=== PATIENT | male | born 1985 | race Caucasian/White ===

== ENCOUNTER 2018-03-26 10:34 | Emergency (ER) ==
[2018-03-26 10:43] VITALS: BP 152/84; TEMP 97.1; BMI 23.7
[2018-03-26] MEDS ORDERED: SODIUM CHLORIDE 1,000 ML IV STA ×3 (10:48→12:03)
[2018-03-26] MEDS ORDERED: MORPHINE 4 MG/ML VIAL IVP STA (10:48)
[2018-03-26] MEDS ORDERED: ZOFRAN 4 MG/2 ML IVP STA (10:48)
[2018-03-26] MEDS ORDERED: MORPHINE 10 MG/ML SYRINGE IVP STA (10:48)
[2018-03-26] MEDS ORDERED: MORPHINE 4 MG/ML SYRINGE IVP STA (10:58)
--- NOTE | 2018-03-26 11:46 | CT ---
EXAM: CT Abdomen without contrast. CT Pelvis without contrast. HISTORY: Right lower quadrant pain, nausea, vomiting, diarrhea. COMPARISON: None available. TECHNIQUE: Multiple axial images of the abdomen and pelvis were obtained without intravenous contras t. Images were reformatted in the sagittal and coronal plane. FINDINGS: Please note that evaluation of the abdominal and pelvic structures is limited due to lack of intravenous contrast. The lung bases are clear. No acute osseous abnormality identified. The liver is mildly enlarged. The liver, gallbladder, pancreas, spleen, and adrenal glands demonstra te normal contour. No calcified renal stones, hydronephrosis or perinephric inflammation identified. The bowel is normal in course and caliber without evidence for obstruction or inflammatory process. The appendix is normal. Urinary bladder is collapsed. No free fluid or free air identified IMPRESSION: No acute abnormality within the abdomen or pelvis.
--- NOTE | 2018-03-26 13:01 | ED.PDOC ---
General ED Provider: Dr. TOVA HEATH Chief Complaint: Nausea/Vomiting Stated Complaint: ABDOMINAL PAIN Time Seen by Physician: 10:45 (VOMITING DIARHEAX 1 DAY ) Mode of Arrival: Walk-In Information Source: Patient Exam Limitations: No limitations Primary Care Provider: BOB KING Referred to ED by: Other (NO GI BLEED REPORTED / NEGATIVE TRAUMA) Nursing and Triage Documentation Reviewed and Agree: Yes (SEE WITH PT'S NURSE AT ALL TIMES ) Reviewed sepsis parameters & appropriate labs ordered?: Yes System Inflammatory Response Syndrome: Not Applicable Sepsis Protocol: For patient's 13 years and over: Temp is 96.8 and below OR 101 and greater Pulse >90 BPM Resp >20/minute Acutely Altered Mental Status Are patient's symptoms suggestive of a new infection, such as: -Pneumonia -Skin, Soft Tissue -Endocarditis -UTI -Bone, Joint Infection -Implantable Device -Acute Abdominal Infection -Wound Infection -Meningitis -Blood Stream Catheter Infection -Unknown System Inflammatory Response Syndrome: Not Applicable GI Complaint Exam - Abdominal Pain Complaint/Exam Onset: Gradual Duration: 1 DAY Symptoms Are: Still present Timing: Intermittent Initial Severity: Moderate Current Severity: Moderate Location of Pain: Diffuse Radiates To: Denies: Chest, Back, Flank, LLQ, RLQ, Inguinal Character: Reports: Cramping Aggravating: Reports: Food Alleviating: Reports: None Associated Signs and Symptoms: Reports: Nausea, Vomiting. Denies: Diaphoresis, Fever, Cough, Chest pain, Dizziness, Back pain, Constipation, Blood in stool, Dysuria, Urinary frequency, Decreased urine output, Decreased appetite, Discharge, Diarrhea, Decreased activity AAA Risk Factors: Reports: None Cardiac Risk Factors: Reports: None Testicular Torsion Risk Factors: Reports: None Surgical Obstruction Risk Factors: Reports: None Related Surgical History: Reports: None Abdominal Findings: Present: None Differential Diagnoses: Appendicitis, Bowel Obstruction, Constipation, Diverticulitis, Hepatitis, Pancreatitis, UTI Quality Indicators for AMI: EKG in 10min. Quality Indicators for Cardiac Chest Pain: EKG in 10min. Quality Indicator For Non-Traumatic Chest Pain/Syncope: EKG Performed Review of Systems - Review Of Systems Constitutional: Reports: Malaise Eyes: Reports: No symptoms Ears, Nose, Mouth, Throat: Reports: No symptoms Respiratory: Reports: No symptoms Cardiac: Reports: No symptoms GI: Reports: Diarrhea, Nausea, Vomiting : Reports: No symptoms Musculoskeletal: Reports: No symptoms Skin: Reports: No symptoms Neurological: Reports: No symptoms Endocrine: Reports: No symptoms Hematologic/Lymphatic: Reports: No symptoms All Other Systems: Reviewed and Negative Past Medical History - Past Medical History Previously Healthy: Yes Endocrine: Reports: None Cardiovascular: Reports: None Respiratory: Reports: None Hematological: Reports: None Gastrointestinal: Reports: None Genitourinary: Reports: None Neuro/Psych: Reports: None Musculoskeletal: Reports: None Cancer: Reports: None - Surgical History General Surgical History: Reports: None - Family History Family History: Reports: None - Social History Smoking Status: Current every day smoker, Heavy tobacco smoker Hx Substance Use: No Alcohol Screening: None - Immunizations Tetanus Shot up to Date: Yes Physical Exam - Physical Exam Appearance: Well-appearing, No pain distress, Well-nourished Eyes: JERROD, EOMI, Conjunctiva clear ENT: Ears normal, Nose normal, Oropharynx normal Respiratory: Airway patent, Breath sounds clear, Breath sounds equal, Respirations nonlabored Cardiovascular: RRR, Pulses normal, No rub, No murmur GI/: Soft, Nontender, No masses, Bowel sounds normal, No Organomegaly Musculoskeletal: Normal strength, ROM intact, No edema, No calf tenderness Skin: Warm, Dry, Normal color Neurological: Sensation intact, Motor intact, Reflexes intact, Cranial nerves intact, Alert, Oriented Psychiatric: Affect appropriate, Mood appropriate Interpretation - Radiology Interpretation Radiology Interpretation By: Radiologist Radiology Results: No acute changes Re-Evaluation - Re-Evaluation Time of Re-Evaluation: 12:00 Status: Improved Vital Signs Stable: Yes Pain Level: 0 Appearance: NAD Lungs: Clear Skin: Warm and Dry Neuro: Alert and Oriented X3 CV: RRR - Re-Evaluation Time of Re-Evaluation: 13:02 Status: Improved Vital Signs Stable: Yes Pain Level: 0 Appearance: NAD Skin: Warm and Dry Neuro: Alert and Oriented X3 CV: RRR Critical Care Note - Critical Care Note Total Time (mins): 0 Course - Course Hematology/Chemistry: 03/26/18 10:50 03/26/18 10:50 Orders, Labs, Meds: Lab Review 03/26/18 03/26/18 03/26/18 10:50 10:50 12:20 WBC 11.43 H RBC 4.89 Hgb 16.0 Hct 44.9 MCV 91.8 MCH 32.7 H MCHC 35.6 H RDW Coeff of Mariano 12.7 Plt Count 207 Immature Gran % (Auto) 0.4 Neut % (Auto) 82.3 Lymph % (Auto) 12.7 [place] % (Auto) 4.1 Eos % (Auto) 0.2 Baso % (Auto) 0.3 Immature Gran # (Auto) 0.1 Neut # (Auto) 9.4 H Lymph # (Auto) 1.5 [place] # (Auto) 0.5 Eos # (Auto) 0.0 Baso # (Auto) 0.0 Sodium 144 Potassium 3.6 Chloride 106 Carbon Dioxide 24 Anion Gap 17.6 BUN 7 Creatinine 0.86 Estimated GFR (MDRD) 102.00 BUN/Creatinine Ratio 8.13 Glucose 109 H Calcium 9.7 Total Bilirubin 1.0 AST 13 L ALT 19 Alkaline Phosphatase 62 Total Protein 7.3 Albumin 4.1 Globulin 3.2 Albumin/Globulin Ratio 1.28 Amylase 41 Lipase 22 Urine Color Yellow Urine Clarity Clear Urine pH >=9.0 Ur Specific [place] 1.020 Urine Protein 1+ Urine Glucose (UA) Negative Urine Ketones Negative Urine Blood Negative Urine Nitrite Negative Urine Bilirubin Negative Urine Urobilinogen 0.2 Ur Leukocyte Esterase Negative Ur Squamous Epith Cells Not present Orders Category Date Time Status ED IV/MEDIPORT/POWERPORT .ONCE EMERGENCY 03/26/18 10:47 Active AMYLASE Stat LAB 03/26/18 10:50 Completed CBC W/ AUTO DIFF Stat LAB 03/26/18 10:50 Completed COMPREHENSIVE METABOLIC PANEL Stat LAB 03/26/18 10:50 Completed LIPASE Stat LAB 03/26/18 10:50 Completed URINALYSIS C & S IF INDICATED Stat LAB 03/26/18 10:47 Uncollected 0.9 % Sodium Chloride [Saline Flush] MEDS 03/26/18 10:46 Active 1 syr IVF PRN PRN Morphine Sulfate [Morphine 4 mg/ml Syringe] MEDS 03/26/18 10:58 Discontinued 4 mg IVP ONCE STA Ondansetron HCl/Pf [Zofran 4 mg/2 ml] MEDS 03/26/18 10:48 Discontinued 4 mg IVP ONCE STA SODIUM CHLORIDE 0.9% @ 1,000 MLS/HR(1,000ml) MEDS 03/26/18 12:03 Ordered Sodium Chloride 0.9% [Sodium Chloride] 1,000 ml IV BOLUS Sodium Chloride 0.9% [Sodium Chloride] 1,000 ml MEDS 03/26/18 10:48 Discontinued IV BOLUS Sodium Chloride 0.9% [Sodium Chloride] 1,000 ml MEDS 03/26/18 10:[address] ABDOMEN/PELVIS WO CONTRAST Stat RADS 03/26/18 10:47 Completed Medications Generic Name Dose Route Start Last Admin Trade Name Kartik PRN Reason Stop Dose Admin Sodium Chloride 1,000 mls @ 1,000 mls/hr 03/26/18 12:03 03/26/18 12:19 Sodium Chloride IV 03/26/18 13:02 1,000 mls/hr BOLUS STA Administration Sodium Chloride 1 syr 03/26/18 10:46 Saline Flush IVF PRN PRN To flush IV Discontinued Medications Generic Name Dose Route Start Last Admin Trade Name Kartik PRN Reason Stop Dose Admin Sodium Chloride 1,000 mls @ 1,000 mls/hr 03/26/18 10:48 03/26/18 11:06 Sodium Chloride IV 03/26/18 11:47 1,000 mls/hr BOLUS STA Administration Sodium Chloride 1,000 mls @ 1,000 mls/hr 03/26/18 10:57 03/26/18 11:12 Sodium Chloride IV 03/26/18 11:56 Not Given BOLUS STA Morphine Sulfate 4 mg 03/26/18 10:58 03/26/18 11:06 Morphine 4 Mg/Ml Syringe IVP 03/26/18 10:59 4 mg ONCE STA Administration Ondansetron HCl 4 mg 03/26/18 10:48 03/26/18 11:10 Zofran 4 Mg/2 Ml IVP 03/26/18 10:49 4 mg ONCE STA Administration Vital Signs: Temp Pulse Resp BP Pulse Ox 03/26/18 10:40 97.1 F L 85 22 152/84 H 99 Departure - Departure Time of Disposition: 13:02 Disposition: HOME SELF-CARE Discharge Problem: Nausea, Vomiting, Pain of upper abdomen, Gastroenteritis Instructions: Abdominal Pain (ED), Dehydration (ED) Condition: Good Pt referred to PMD for follow-up: Yes IPMP verified?: No Additional Instructions: Please call your Family Physician as soon as possible to schedule a follow-up appointment. Allergies/Adverse Reactions: Allergies No Known Allergies Allergy (Unverified 03/26/18 10:43) Home Medications: Ambulatory Orders Promethazine HCl [Phenergan Tab] 25 mg PO Q6H PRN 03/26/18
== END 2018-03-26 13:40 | disposition home or self-care (01) ==
LOC: ED 10:34
DX: K52.9 Noninfective gastroenteritis and colitis, unspecified (principal); R10.10 Upper abdominal pain, unspecified; F17.210 Nicotine dependence, cigarettes, uncomplicated
CPT/HCPCS: 36415; 80053; 81001; 82150; 83690; 85025; 96361; 96374; 96375; 99283